=== PATIENT | male | born 1975 | race African-American/Black ===

== ENCOUNTER 2021-04-09 18:24 | Emergency (ER) | payer OTHER ==
[~2021-04-09] VITALS: Ht 182.9 cm; Wt 100.2 kg
--- NOTE | 2021-04-09 18:37 | NUR ---
BIB [id number] FOR GENERALIZED WEAKNESS AND NAUSEA X 1 WEEK. 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 PER EMS, PT WAS AT [facility] A FEW DAYS AGO FOR SAME COMPLAINT. DENIES DIZZINESS, SYNCOPE. REPORTS VOMITING YESTERDAY. HX HTN, ANXIETY, DEPRESSION, DM. AAOX4, BREATHING EVEN AND UNLABORED, NO FACIAL DROOP. WILL CONTINUE TO MONITOR.
--- NOTE | 2021-04-09 18:55 | NUR ---
BS 236
[2021-04-09 19:51] LABS: BASOPHILS % (AUTO) 0.6 % (0.0-2.0); EOSINOPHILS % (AUTO) 0.9 % (0.0-6.0); HEMATOCRIT 38 % (39-51); HEMOGLOBIN 13.4 g/dL (13.5-17.5); LYMPHOCYTES # (AUTO) 1.7 K/uL (0.8-4.8); LYMPHOCYTES % (AUTO) 21.5 % (20.0-44.0); MEAN CORPUSCULAR HGB CONC 35 g/dl (31.0-36.0); MEAN CORPUSCULAR VOLUME 86 fL (80-96); MONOCYTES # (AUTO) 0.5 K/uL (0.1-1.30); MONOCYTES % (AUTO) 5.9 % (2.0-12.0); NEUTROPHILS # (AUTO) 5.6 K/uL (1.8-8.9); NEUTROPHILS % (AUTO) 71.1 % (43.0-81.0); PLATELET COUNT (AUTO) 208 K/uL (150-450); RED BLOOD CELL COUNT(AUTO) 4.46 MIL/uL (4.5-6.0); WHITE BLOOD COUNT (AUTO) 7.9 K/uL (4.3-11.0)
[2021-04-09 20:15] LABS: CALCIUM, SERUM 8.3 mg/dL (8.5-10.1); CARBON DIOXIDE 31 mmol/L (21-32); CHLORIDE 103 mmol/L (98-107); CREATININE 0.9 mg/dL (0.6-1.3); GLUCOSE 257 mg/dL (74-106); POTASSIUM 3.5 mmol/L (3.5-5.1); SODIUM SERUM 140 mmol/L (136-145); UREA NITROGEN, BLOOD 14 mg/dL (7-18)
--- NOTE | 2021-04-09 21:06 | NUR ---
Transfer set up with [facility]. ETA [id number]
--- NOTE | 2021-04-09 21:06 | NUR ---
[address] [id number]
--- NOTE | 2021-04-09 22:08 | NUR ---
Patient discharged to facility in stable condition. Written and verbal after care instructions given. Patient verbalizes understanding of instruction.
[2021-04-09 22:16] VITALS: BP 149/106
== END 2021-04-09 22:17 | disposition home or self-care (01) ==
LOC: ER 18:31
DX: R53.1 Weakness (principal); I10 Essential (primary) hypertension; E11.9 Type 2 diabetes mellitus without complications; F32.A Depression, unspecified
CPT/HCPCS: 36415; 71045-TC; 80048-TC; 84484-TC; 85025-TC